=== PATIENT | male | born 1985 | race African-American/Black ===

== ENCOUNTER 2019-02-04 12:16 | Emergency (ER) | payer OTHER ==
[~2019-02-04] VITALS: Ht 172.7 cm; Wt 77.1 kg
[2019-02-04] MEDS ORDERED: ALBUTEROL2.5 MG/3 M INH (12:38)
[2019-02-04] MEDS ORDERED: Albuterol ud Inhalation HHN ONE ×2 (12:45→13:30)
[2019-02-04 12:56] VITALS: BP 114/80
--- NOTE | 2019-02-04 13:19 | Emergency Room Report ---
History of Present Illness General Chief Complaint: Dyspnea/Respdistress Source: Patient Present Illness HPI 33 YO Male presents to the ED C/O asthma exacerbation with cough and wheezing. He is out of albuterol inhaler at home. He reports use of steroid in the past but did not like how it him feel. Patient denies fevers, chills, sputum production, hemoptysis or chest pain, palpitations, dizziness or syncope. He denies pain at this time. Allergies: Coded Allergies: No Known Allergies (Unverified , 02/04/19) Patient History Past Medical History: see triage record Past Surgical History: none Pertinent Family History: none Immunizations: UTD Reviewed Nursing Documentation: PMH: Agreed; PSxH: Agreed Nursing Documentation-PMH Past Medical History: No History, Except For Hx Asthma: Yes Review of Systems All Other Systems: negative except mentioned in HPI Physical Exam Vital Signs Date Time Temp Pulse Resp B/P (MAP) Pulse Ox O2 Delivery O2 Flow Rate FiO2 02/04/19 12:34 97.9 98 17 114/80 (91) 92 Room Air Sp02 EP Interpretation: reviewed, normal General Appearance: no apparent distress, alert, GCS 15, non-toxic Head: normocephalic, atraumatic Eyes: bilateral eye normal inspection, bilateral eye PERRL ENT: hearing grossly normal, normal voice Neck: full range of motion Respiratory: chest non-tender, speaking full sentences, wheezing Cardiovascular #1: regular rate, rhythm, no edema Gastrointestinal: non tender Musculoskeletal: normal range of motion, gait/station normal, non-tender Neurologic: alert, motor strength/tone normal, oriented x3, sensory intact, responsive, speech normal Psychiatric: judgement/insight normal Skin: no rash, normal color, normal inspection Lymphatic: no adenopathy Medical Decision Making PA Attestation Dr. Kinney is my supervising Physician whom patient management has been discussed with. Diagnostic Impression: Primary Impression: Asthma exacerbation Qualified Codes: J45.901 - Unspecified asthma with (acute) exacerbation ER Course 33 YO Male presents to the ED C/O asthma exacerbation with cough and wheezing. He is out of albuterol inhaler at home. He reports use of steroid in the past but did not like how it him feel. Patient denies fevers, chills, sputum production, hemoptysis or chest pain, palpitations, dizziness or syncope. He denies pain at this time. Ddx considered but are not limited to asthma exacerbation, CHF, URI, pneumonia, PE, strep pharyngitis, meningitis. Vital signs: Pt. is afebrile, VS are WNL H&PE are most consistent with URI, asthma exacerbation ORDERS: none required at this time, the diagnosis is clinical ED INTERVENTIONS: Albuterol nebulized treatment x 2 - re-examination post nebulized treatment lungs are CTA bilaterally. DISCHARGE: At this time pt. is stable for d/c to home. Will provide printed patient care instructions, and any necessary prescriptions. Care plan and follow up instructions have been discussed with the patient prior to discharge. Last Vital Signs Date Time Temp Pulse Resp B/P (MAP) Pulse Ox O2 Delivery O2 Flow Rate FiO2 02/04/19 12:56 97.9 89 17 114/80 92 Room Air Status: improved Disposition: HOME, SELF-CARE Condition: Stable Scripts Codeine/Promethazine Hcl* (PROMETHAZINE-CODEINE SYRUP*) 118 Ml Syrup 5 ML ORAL Q6H PRN for For Cough, #120 ML 0 Refills Prov: Kiesha Easley 02/04/19 Albuterol Sulfate* (ALBUTEROL SULFATE MDI*) 8.5 Gm Hfa.aer.ad 2 PUFF INH Q3H, #1 INH 1 Refill Prov: Kiesha Easley 02/04/19 Referrals: YAMEL ANGELES,REFERRING (PCP) Patient Instructions: Asthma, Adult, [id number] Additional Instructions: Take medications as directed. Follow up with a Primary Care Provider in 3-5 days, even if your symptoms have resolved. Return sooner to ED if new symptoms occur, or current symptoms become worse. Do not drink alcohol, drive, or operate heavy machinery while taking Cough Syrup as this may cause drowsiness. - Please note that this Emergency Department Report was dictated using [employer] technology software, occasionally this can lead to erroneous entry secondary to interpretation by the dictation equipment. Kiesha Easley Feb 04, 2019 13:19
[2019-02-04] MEDS ORDERED: ALBUTEROL SULF8.5 GM INH (13:56)
[2019-02-04] MEDS ORDERED: PROMETHAZINE-C118 M1 ORAL (13:56)
[2019-02-04 14:10] VITALS: BP 121/76
== END 2019-02-04 14:15 | disposition home or self-care (01) ==
LOC: EMR 13:00
DX: J45.901 Unspecified asthma with (acute) exacerbation (principal); Z79.51 Long term (current) use of inhaled steroids
CPT/HCPCS: 99283

== ENCOUNTER 2019-05-02 15:16 | Emergency (ER) | payer OTHER ==
[~2019-05-02] VITALS: Ht 172.7 cm; Wt 80.3 kg
[2019-05-02 15:10] VITALS: BP 153/105
--- NOTE | 2019-05-02 15:11 | NUR ---
ED Nurse Note:pt. came with c/o asthma exacerbation starting this morning, VSS, no acute distress noted
[~2019-05-02 15:16] MED LIST: ALBUTEROL SULF8.5 GM INH; ALBUTEROL2.5 MG/3 M INH; PROMETHAZINE-C118 M1 ORAL
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
--- NOTE | 2019-05-02 15:55 | NUR ---
ED Nurse Note:chest x-ray is done
[2019-05-02] MEDS ORDERED: ALBUTEROL SULF8.5 GM INH (16:02)
[2019-05-02] MEDS ORDERED: MEDROL DOSEPAK4 MG ORAL (16:02)
[2019-05-02 16:05] VITALS: BP 153/105
--- NOTE | 2019-05-02 16:05 | NUR ---
ER DISCHARGE NOTE: Patient is cleared to be discharged per ERMD, pt is aox4, on room air, with stable vital signs. pt was given dc and prescription instructions, pt was able to verbalize understanding, pt is able to ambulate with steady gait. pt took all belongings.
--- NOTE | 2019-05-02 16:06 | Diagnostic Imaging Report ---
Indication: Dyspnea Comparison: 02/26/2010 A single view chest radiograph was obtained. Findings: Cardiomediastinal appearance is within normal limits for age. The lungs are clear. Pulmonary vascularity is appropriate. The diaphragmatic contour is smooth and costophrenic angles are sharp. No pleural effusions are identified. The bones are unremarkable. Impression: No acute findings
== END 2019-05-02 16:05 | disposition home or self-care (01) ==
LOC: EDBD 15:16 → EMR 15:29
DX: J45.901 Unspecified asthma with (acute) exacerbation (principal); Z90.5 Acquired absence of kidney; Z72.0 Tobacco use
CPT/HCPCS: 71045; Z7502; 99283

== ENCOUNTER 2019-05-04 08:28 | Emergency (ER) | payer OTHER ==
[~2019-05-04] VITALS: Ht 172.7 cm; Wt 80.3 kg
[~2019-05-04 08:28] MED LIST changes: +MEDROL DOSEPAK4 MG ORAL
[2019-05-04 08:38] VITALS: BP 125/76
--- NOTE | 2019-05-04 08:40 | NUR ---
ED Nurse Note: Patient walked into ED from home due to asthma exacerbation withou coughing and SOB since 05/02/19. Patient is alert awake x4 ambulatory, breathing unlabored and even, speaking in fulls sentences, not shortness of breath at the time of arrival to ED. patient reports he wants cough medication, breathing tx prescription and also the note to go back to work.
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
[2019-05-04] MEDS ORDERED: GUAIFENESIN DM118 M1 ORAL (08:54)
[2019-05-04] MEDS ORDERED: ALBUTEROL SULF8.5 GM INH (08:54)
[2019-05-04] MEDS ORDERED: Albuterol/Ipratropium 3ml neb HHN ONE (09:00)
--- NOTE | 2019-05-04 09:14 | NUR ---
ED Nurse Note: Jose Francisco RT is providing breathing tx to patient.
--- NOTE | 2019-05-04 09:15 | NUR ---
ED Nurse Note: per Dr. Mendoza, cxr is cancelled at this time.
[2019-05-04 09:25] VITALS: BP 125/76
--- NOTE | 2019-05-04 09:25 | NUR ---
ER DISCHARGE NOTE: Patient is cleared to be discharged per ERMRojelio Mendoza, pt is aox4, on room air, with stable vital signs. pt was given dc and prescription instructions, pt was able to verbalize understanding, pt id band removed without complications. pt is able to ambulate with steady gait. pt took all belongings. patient tolerated breathing tx without complications.
== END 2019-05-04 09:25 | disposition home or self-care (01) ==
LOC: EMR 08:46
DX: J45.31 Mild persistent asthma with (acute) exacerbation (principal); R06.02 Shortness of breath; Z90.5 Acquired absence of kidney; F17.200 Nicotine dependence, unspecified, uncomplicated; Z88.8 Allergy status to other drugs, medicaments and biological substances
CPT/HCPCS: 99284; J7620

== ENCOUNTER 2019-11-24 13:03 | Emergency (ER) | payer OTHER ==
[~2019-11-24] VITALS: Ht 172.7 cm; Wt 83.9 kg
[~2019-11-24 13:03] MED LIST changes: +GUAIFENESIN DM118 M1 ORAL
[2019-11-24 13:08] VITALS: BP 130/92
--- NOTE | 2019-11-24 13:10 | NUR ---
ED Nurse Note: PT walked in to ed for c/o muscle spasm to whole body for the last 5 months. pt also reports being very gassy for the last month
--- NOTE | 2019-11-24 13:29 | NUR ---
ED Nurse Note: cxr being done at bedside.
[2019-11-24] MEDS ORDERED: Methocarbamol 500mg tab ORAL ONE (13:30)
--- NOTE | 2019-11-24 13:35 | NUR ---
ED Nurse Note: blood and urine sample collected and sent to lab.
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
--- NOTE | 2019-11-24 14:00 | NUR ---
ED Nurse Note: pt taken to CT via wheel chair in stable condition by professor of radiology
[2019-11-24 14:03] LABS: BASOPHILS % (AUTO) 4.6 % (0.0-2.0); EOSINOPHILS % (AUTO) 3.2 % (0.0-3.0); HEMOGLOBIN 15.1 G/DL (14.2-18.0); LYMPHOCYTES % (AUTO) 35.7 % (20.0-45.0); MEAN CORPUSCULAR VOLUME 90 FL (80-99); NEUTROPHILS % (AUTO) 46.5 % (45.0-75.0); PLATELET COUNT 384 K/UL (150-450); RED BLOOD COUNT 4.75 M/UL (4.70-6.10); RED CELL DISTRIBUTION WIDTH 11.2 % (11.6-14.8); WHITE BLOOD COUNT 7.1 K/UL (4.8-10.8)
[2019-11-24 14:03] LABS: APPEARANCE,URINE CLEAR; BILIRUBIN, URINE NEGATIVE (NEGATIVE); GLUCOSE, URINE (UA) NEGATIVE (NEGATIVE); KETONES,URINE NEGATIVE (NEGATIVE); LEUKOCYTE ESTERASE ,URINE NEGATIVE (NEGATIVE); NITRITE,URINE NEGATIVE (NEGATIVE); PH,URINE 5 (4.5-8.0); PROTEIN,URINE NEGATIVE (NEGATIVE); UROBILINOGEN,URINE NORMAL MG/DL (0.0-1.0)
[2019-11-24 14:06] LABS: COLOR,URINE YELLOW
[2019-11-24 14:15] LABS: ANION GAP 12 mmol/L (5-15); BLOOD UREA NITROGEN 17 mg/dL (7-18); CALCIUM 9.5 MG/DL (8.5-10.1); CARBON DIOXIDE 25 MMOL/L (21-32); CHLORIDE 103 MMOL/L (98-107); CREATININE 1.6 MG/DL (0.55-1.30); POTASSIUM 3.5 MMOL/L (3.5-5.1); SODIUM 140 MMOL/L (136-145)
[2019-11-24 14:28] LABS: ALANINE AMINOTRANSFERASE 33 U/L (12-78); ALBUMIN 4.4 G/DL (3.4-5.0); ALBUMIN/GLOBULIN RATIO 1.1 (1.0-2.7); ALKALINE PHOSPHATASE 56 U/L (46-116); ASPARTATE AMINO TRANSFERASE 41 U/L (15-37); BILIRUBIN,TOTAL 0.7 MG/DL (0.2-1.0); CREATINE KINASE 1019 U/L (26-308)
--- NOTE | 2019-11-24 14:34 | Diagnostic Imaging Report ---
Indication: Abdominal pain Technique: Spiral acquisitions obtained through the abdomen and pelvis. No oral contrast utilized, per emergency room physician request No IV contrast utilized, per emergency room physician request.. Multiplanar reconstructions were generated. Total dose length product 296 mGycm. CTDIvol(s) 6 mGy. Dose reduction achieved using automated exposure control Comparison: 02/12/2018 Findings: Lack of enteric contrast limits assessment of the GI tract. The appendix is normal. No evidence of diverticulosis or diverticulitis. There is a small bowel to small bowel anastomosis in the anterior mid abdomen, with mild distention of the bowel in the region of the anastomosis. This is unchanged. The remainder of the small bowel is normal in caliber. There are numerous prominent but not frankly enlarged nodes in the mesenteric root. These are more conspicuous than previously, probably due to more abundant mesenteric fat, but were probably present previously. No free or loculated intraperitoneal gas or fluid is evident. The distal esophagus, stomach, duodenum are unremarkable. Lack of IV contrast limits assessment of the solid organs. The liver, gallbladder, bile ducts are unremarkable. The pancreatic tail has been removed. The spleen has been removed and surgical clips are seen in the splenic bed. The adrenals are unremarkable. Left kidney has been removed. Right kidney is unremarkable. No focal parenchymal abnormality, calculi, or hydronephrosis or hydroureter. No retroperitoneal or mesenteric mass or adenopathy. No pelvic mass or adenopathy. The included lung bases are clear. The bones are unremarkable. Impression: Limited assessment of the GI tract, due to lack of enteric contrast administration No definite acute abnormality Post surgical changes as described, including prior splenectomy, left nephrectomy, partial pancreatectomy, enteroenteric anastomosis Nonspecific prominent mesenteric root lymph nodes The CT scanner at [facility] is accredited by the [employer] and the scans are performed using protocols designed to limit radiation exposure to as low as reasonably achievable to attain images of sufficient resolution adequate for diagnostic evaluation.
[2019-11-24] MEDS ORDERED: TYLENOL EXTRA500 MG ORAL (15:03)
[2019-11-24] MEDS ORDERED: ROBAXIN-500MG ORAL (15:03)
[2019-11-24] MEDS ORDERED: DICYCLOMINE HCL10 MG ORAL (15:03)
[2019-11-24] MEDS ORDERED: FAMOTIDINE20 MG ORAL (15:03)
[2019-11-24 15:11] VITALS: BP 125/88
--- NOTE | 2019-11-24 15:11 | NUR ---
ER DISCHARGE NOTE: Patient is cleared to be discharged per ERMD, pt is aox4, on room air, with stable vital signs. pt was given dc and prescription instructions, pt was able to verbalize understanding, pt id band and iv site removed without complications. pt is able to ambulate with steady gait. pt took all belongings.
--- NOTE | 2019-11-24 16:11 | Diagnostic Imaging Report ---
Indication: Chest pain Technique: One view of the chest Comparison: 05/02/2019 Findings: Lungs and pleural spaces are clear. Heart size is normal. No significant change Impression: No acute process
== END 2019-11-24 15:11 | disposition home or self-care (01) ==
LOC: EMR 13:52
DX: M79.10 Myalgia, unspecified site (principal); R10.9 Unspecified abdominal pain; J45.909 Unspecified asthma, uncomplicated; Z88.8 Allergy status to other drugs, medicaments and biological substances; Z90.5 Acquired absence of kidney
CPT/HCPCS: 36415; 71045; 74176; 80053; 80307; 81003; 82550; 83880; 84484; 85025; 93005; 96360; J7030; Z7502; 99284